=== PATIENT | female | born 1985 | race Caucasian/White ===

== ENCOUNTER 2017-03-10 02:35 | Inpatient (IN) | payer OTHER ==
[~2017-03-10] VITALS: Ht 162.6 cm; Wt 78.5 kg
[~2017-03-10 02:35] MED LIST: AMOX-366 PO
[2017-03-10] MEDS ORDERED: PREN1TAB87 PO (08:14)
[2017-03-10] MEDS ORDERED: ALBU8.5H2 INHALATION (08:17)
[2017-03-10] MEDS ORDERED: Lactated Ringer's 1,000 ML IV PRN (08:34)
[2017-03-10] MEDS ORDERED: Oxytocin 10 Unit/mL Inj IM PRN (08:35)
[2017-03-10] MEDS ORDERED: fentaNYL-PF 50 mCg/mL 2 mL Inj IVPUSH PRN (08:35)
[2017-03-10] MEDS ORDERED: Hemorrhage Kit, Post Partum XX ONE (08:35)
[2017-03-10] MEDS ORDERED: Ondansetron 2 mg/mL 2 mL Inj IVPUSH PRN ×2 (08:35→10:35)
[2017-03-10] MEDS ORDERED: Carboprost 250 mCg/mL Inj IM PRN (08:35)
[2017-03-10] MEDS ORDERED: Oxytocin 30 Units/500 mL LR 30 UNITS in IV Premix 1 EACH IV PRN (08:35)
[2017-03-10] MEDS ORDERED: Methylergonovine 0.2 mg/mL Inj IM PRN (08:35)
[2017-03-10 08:42] LABS: Mean Corpuscular Hemoglobin 28.3 pg (27.0-35.0); Mean Corpuscular Volume 84.8 fL (81-100)
--- NOTE | 2017-03-10 08:45 | PCM.HPOB ---
Subjective Referring Provider: Admitting Physician: Nancy Coon MD Primary Care Physician: Nopcp Attending Physician: Nancy Coon MD History of Present History of Present Illness Emilee is a 31 y/o -0-1-1 at 40 weeks 6 days gestation with an LOU of 2016 who is admitted for induction of labor for postmaturity . She did have a low lying placenta early in , but this was noted to be resolved on ultrasound 12/12/2016. She has a history of asthma, but no complications during . She is GBS negative and has a PCN and Sulfa allergy. Obstetrical Complications: None Past Medical History Obstetrical History: 1. at 41 weeks Gynecologic History: Noncontributory Medical History: Asthma Surgical History: None Hx Tobacco Use: No Hx Alcohol Use: No Hx Substance Use: No Past Family History Living Arrangement: with Family Genetic Screening/Counseling Genetic Screening/Counseling: Negative Allergy Coded Allergies: Penicillins (Unverified Allergy, Unknown, 10/23/16) Sulfa (Sulfonamide Antibiotics) (Unverified Allergy, Unknown, 10/23/16) Exam Vital Signs Reviewed and stable Exam Category I FHT Constitutional: Well-developed, Well-nourished Lungs: Clear to Auscultation Heart: Exam Unremarkable Abdomen: Gravid Neurological/Psychiatric: Alert, Oriented X3, Cooperative, No Acute Distress Neuro: Grossly Neurologically Intact Additional Information 50/-2, soft, posterior and vertex Labs/Diagnostics Labs Laboratory Tests 72 Hours Test 03/10/17 07:25 Maternal Blood Type: A (Positive) Hx Rho(D) Immune Globulin: No Group B Strep Results: Negative Previous with GBS: No Rubella: Immune Lab History: Positive for: Hx Chicken Pox OB Intrapartum Assessment/Plan Problems: (1) Postmaturity , 40-42 weeks gestation Plan: Plan for Pitocin induction. May have epidural when she desires. Status: Acute ICD Code: O48.0 Lary Eaton MD March 10, 2017 08:45
[2017-03-10] MEDS: Lactated Ringer's 1,000 ML IV SCH ×4 (09:06→18:33)
[2017-03-10] MEDS ORDERED: Lactated Ringer's 500 ML IV ONE (10:33)
--- NOTE | 2017-03-10 10:33 | PCM.HPANE ---
Patient Data Date of Service: March 10, 2017 Surgeon Admitting Provider:Nancy Coon MD Attending Provider:Nancy Coon MD Primary Care Physician:Skip Other Provider:Carmina Cuello Anesthesia Reason for Visit Induction INDUCTION Ht/WT & BMI Height (Centimeters): 163 Weight (Kilograms): 78 Body Mass Index Allergies Coded Allergies: Penicillins (Unverified Allergy, Unknown, 10/23/16) Sulfa (Sulfonamide Antibiotics) (Unverified Allergy, Unknown, 10/23/16) Past Anesthesia History Anesthesia History: Denies:: Abnormal Airway, Anesthesia Reactions, Difficult Intubation, Fam Anesthesia Reaction, Fam Malignant Hypertherm, Malignant Hyperthermia Diabetes History Hx Diabetes?: No MRSA MRSA: No Medications Hypertension Medication: No Home Meds Incl Beta Rola: No Reported Medications Albuterol HFA (Proair HFA)8.5 Gm Hfa.aer.ad2 Puffs INHALATION Q4H PRN For Shortness of Breath #1 INHALER 03/10/17 Vit W-Ca,Fe,FA(<1 mg) ( Vitamins)1 Each Tablet1 Each PO DAILY 03/10/17 Discontinued Scripts Amoxicillin/Clav K 875-125 mg (Augmentin 875-125 mg)1 Each Tablet1 Tablet PO BID #6 TABLET Ref 0 Prov:Reagan Diaz MD 10/23/16 History History of ENT Problems?: No HEENT History: Denies:: Abnormal Airway Cataracts Difficult Intubation Dysphagia Glaucoma Hearing Problem Sinus Problem TMJ Denture Type: None Teeth Condition: Within Normal Limits Hx of Heart Problems?: No Cardiovascular History: Denies:: AICD Abdominal Aortic Aneurism Atrial Fibrillation Cardiac Surgery Chest Pain Congestive Heart Failure Coronary Artery Disease Edema Heart Murmur Hypertension Irregular Heartbeat Pacemaker Peripheral Vascular Rheumatic Fever Thrombophlebitis Valvular Heart Disease Hx of Respiratory Problem?: Yes Respiratory History: Positive for:: Asthma Use of Inhalers / NEBS Hx Neurologic Problems?: No Neurological History: Denies:: Alzheimer's Disease CVA Dementia Dizziness Headaches Multiple Sclerosis Parkinson's Disease Peripheral Neuropathy Seizures TIA Hx of GI Problems?: No Gastrointestinal History: Denies:: Cirrhosis Diverticulitis Gall Bladder Disease Gastroesphageal Reflux Gastrointestinal Bleeding Heartburn Hepatitis Hiatal Hernia Liver Disease Rectal Bleeding Hx of Problems?: No Genitourinary History: Denies:: HX of Hemodialysis Kidney Stones Urinary Tract Infection Female Hx: Positive for:: Currently Hx Musculoskeletal Problems?: No Musculoskeletal History: Denies:: Back Injury Degenerative Joint Fibromyalgia Joint Replacement Musculoskeletal Trauma Myasthenia Gravis Osteoarthritis Rheumatoid Arthritis Systemic Lupus Hx Surgeries?: No Hx Alcohol Use: NoHx Substance Use: No Smoking Status: Former Smoker Stop/Bang LEONARDO Risk Assessment: Low Risk, <3 Yes Risk Assessment Category Category 1A: Patient has history of documented sleep apnea, and HAS NOT received any narcotic, sedative or anesthesia administration during this stay. Category 1B: Patient has history of documented sleep apnea, and HAS received any narcotic , sedative or anesthesia administration during this stay Category 2: Patient has SUSPECTED Obstructive Sleep Apnea, and HAS received any narcotic , sedative or anesthesia administration during this stay. Category 3: Patient has SUSPECTED Obstructive Sleep Apnea and HAS NOT received narcotic, sedative or anesthesia administration during this stay. Category 4: Outpatient in Procedural Areas with known sleep apnea or who screen positive for High Risk via the STOP/BANG questionnaire. Exam Exam General Appearance: Alert, Oriented X3, Cooperative, No Acute Distress HEENT/AIRWAY: MP 1 Lungs: Clear to Auscultation Heart: Exam Unremarkable Meds/Labs/Diagnostics Admission Meds Current Medications Lactated Ringer's (Lr) 1,000 ml @ 125 mls/hr Q8H IV Last administered on t 09:06; Start 03/10/17 at 08:34 Labs Test 03/10/17 07:25 White Blood Count 6.1th/mm3 (3.8-10.1) Red Blood Count 4.34mil/mm3 (3.90-5.20) Hemoglobin 12.3g/dL (12.0-15.6) Hematocrit 36.8% (35.0-46.0) Mean Corpuscular Volume 84.8fL (81-100) Mean Corpuscular Hemoglobin 28.3pg (27.0-35.0) Mean Corpuscular Hemoglobin Concent 33.4% (32.0-37.0) Red Cell Distribution Width 13.4% (12.3-15.4) Platelet Count 160bil/L (150-400) Hold Purple Top Tube Received (Received) Plan Impression Patient chart reviewed, patient interviewed and anesthestic plan with risks, benefits, and alternatives discussed, and informed consent obtained. ASA Physical Status: ASA2 Mod Systemic Disease Anesthetic Plan: Epidural Bene/Risks/Altern/Consents: Yes HP Complete Prior to Induction: Yes Arthur Lundberg MD March 10, 2017 10:33
[2017-03-10] MEDS ORDERED: EPHEDrine Sulfate 50 mg/mL Inj IVPUSH PRN (10:35)
[2017-03-10] MEDS ORDERED: fentaNYL 2 mCg/mL-Bupiv 0.125% 100 ML EPIDURAL SCH (10:35)
[2017-03-10] MEDS ORDERED: Atropine 1 mg/10 mL (Code) Syringe IVPUSH PRN (10:35)
--- NOTE | 2017-03-10 12:24 | PCM.PNOBIP ---
Subjective Date of Service March 10, 2017 Delivery plan: Spontaneous Vaginal Delivery Visit History Emilee is a 31 y/o -0-1-1 at 40 weeks 6 days gestation with an LOU of 2016 who is admitted for induction of labor for postmaturity . She did have a low lying placenta early in , but this was noted to be resolved on ultrasound 12/12/2016. She has a history of asthma, but no complications during . She is GBS negative and has a PCN and Sulfa allergy. Subjective Patient has epidural, feels pain on right in lower back (4/10) Pain Management: Epidural Gastrointestinal: No N/V Group B Strep Results: Negative Rubella: Immune Blood Type: A (Positive) RH Type: Positive Labs Laboratory Tests 03/10/17 07:25: White Blood Count 6.1, Red Blood Count 4.34, Hemoglobin 12.3, Hematocrit 36.8, Mean Corpuscular Volume 84.8, Mean Corpuscular Hemoglobin 28.3, Mean Corpuscular Hemoglobin Concent 33.4, Red Cell Distribution Width 13.4, Platelet Count 160, Hold Purple Top Tube Received Exam Vital Signs Vital Signs Contraction frequency in minutes: 2 minutes Vital Signs: VS reviewed, stable Heart Tracings Heart Tones Baseline 120 bpm Heart Rate Variability: Moderate Heart Rate Accelleration: Present Heart Rate Deceleration: Absent Heart Rate Category: I Sterile Vaginal Exam Cervical Dilation: 3 cms Cervical Effacement: 70 % Station: -3 Exam General: Alert, Oriented X3, Cooperative, No Acute Distress OB Intrapartum Assessment/Plan Problems: (1) Postmaturity , 40-42 weeks gestation Plan: Attempted to AROM, but thick membrane and could not rupture at this time. Continue to monitor. FHT overall reassuring, will continue with Pitocin induction. Status: Acute ICD Code: O48.0 Intrapartum plan: Continue expected management Lary Eaton MD March 10, 2017 12:24
[2017-03-10] MEDS ORDERED: Sodium Chloride LOK Flush 10 mL Syringe IVFLUSH SCH (16:30)
--- NOTE | 2017-03-10 18:33 | PCM.OBVAG ---
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 Induction: Induction of labor, AROM, Progressed normally through labor Findings Obstetrical Findings: (Female), Cord (3 Vessel), Presentation (Vertex) , 1 minute (9), 5 minutes (9), Placenta (Intact/Normal), Perineal Laceration (2nd degree) Analgesia/Medications Obstetrical Anesthesia: Epidural Procedure Details Procedure Details Emilee is a 31 y/o -0-1-1 at 40 weeks 6 days gestation with an LOU of 2016 who is admitted for induction of labor for postmaturity . She was started on Pitocin and progressed through labor normally. She received an epidural and her membranes were ruptured at 0546 and she was completely dilated at 0710. She delivered a female her spontaneous vaginal delivery at 07: 39. There were 2 nuchal cords that were tight and the infant delivered without difficulty. After delivery the nuchal cords were reduced and the was placed on the maternal chest for skin to skin bonding. Delayed cord clamping was allow for 1 minute and the cord was doubly clamped and ligated. The placenta was delivered intact with three-vessel cord at 07:48. Inspection of the vagina cervix and perineum there was a small second-degree laceration that was repaired in the standard fashion with 2-0 Vicryl suture. Sponge counts were correct 2 and the procedure. Specimen none IV Intake/Output Catheters: Urethral [address] [place] Blood Loss & Administration Estimated Blood Loss: 200 Blood Admin during procedure: No Post Procedure Plan Post Procedure Plan routine care Post delivery Condition: Mom stable Lary Eaton MD March 10, 2017 18:33
[2017-03-10] MEDS ORDERED: Measles-Mumps-Rubella Vaccine 0.5 mL Inj SUBQ PRN (20:35)
[2017-03-10] MEDS ORDERED: Witch Hazel-Glycerin Pads TOPICAL PRN (20:35)
[2017-03-10] MEDS ORDERED: LANOlin HPA 7 Gm Ointment TOPICAL PRN (20:35)
[2017-03-10] MEDS ORDERED: Benzocaine (Dermoplast) 20% 60 Gm Spray TOPICAL PRN (20:35)
[2017-03-10] MEDS ORDERED: TdaP Vaccine 0.5 mL Inj IM ONE (20:35)
--- NOTE | 2017-03-10 21:34 | PCM.ANEP1 ---
Post Anesthesia PACU Phase 1 Assessment Date of Service: March 10, 2017 Vital Signs VSS see nurses note Anesthetic Administered: Epidural Level of Alertness: Awake, talking REDDY's with Equal Strength: Yes Pain: No Pain Scale Score: 0 Nausea or Vomiting: No CV Function & Hydration Stable: Yes Airway Device: none!!! Oxygen Delivery: Room Air Lungs: Normal Air Movement Dermatome Level: Full Sensation PACU Phase 2 Assessment Complications: No Follow up Care: N/A Patient Instructions Provided: N/A Arthur Lundberg MD March 10, 2017 21:33
[2017-03-11 06:11] LABS: Mean Corpuscular Hemoglobin 28.5 pg (27.0-35.0)
[2017-03-11] MEDS: oxyCODONE-Acetamin 5-325 mg Tablet PO PRN ×3 (06:43→20:20)
--- NOTE | 2017-03-11 19:34 | PCM.DIMED ---
Discharge Instructions Date of Service March 11, 2017 Dates of Hospitalization March 10, 2017 at 6:40 am Diet Discharge Diet: No restrictions Activity Discharge Activity: No restrictions Call your provider Call your provider for: Fever or Chills, Shortness of breath, Bleeding, Chest pain, Vomitting, Excessive diarrhea, Weakness (unilateral) Patient Instructions Follow-up with PCP in: 2 weeks Reagan Diaz MD March 11, 2017 7:34 pm
[2017-03-11 19:39] VITALS: BP 133/77; PULSE 76; RESP 16
[2017-03-11] MEDS ORDERED: IBUP800T28 PO (19:39)
[2017-03-11] MEDS ORDERED: OXYC1TAB24 PO (19:39)
[2017-03-11 19:43] VITALS: BP 133/77; PULSE 76; RESP 16
--- NOTE | 2017-03-11 19:54 | DIS ---
[address] [address] DISCHARGE SUMMARY PATIENT: QUINCY JOHNSON : 1985 MR#: [id number] ADMIT: 03/10/2017 JOB ID: [id number] DIS: 03/11/2017 ADMITTING DIAGNOSIS: A 31-year-old, 3, para 1, at 40 weeks and 6 days for induction of labor for post-term . DISCHARGE DIAGNOSIS: A 31-year-old, 3, para 2, status post spontaneous vaginal delivery at term. HOSPITAL COURSE: The patient was admitted to the hospital on the morning of March 10, 2017 for induction of labor because of post dates . She was examined. The cervix was favorable and she was started on Pitocin, and progressed through labor normally. The patient received an epidural. Had artificial rupture of membranes at 5:46 p.m. and progressed to complete dilation at 7:10 p.m., and underwent spontaneous vaginal delivery at 7:39 a.m. Delivered a female with Apgars 9 at 1 minute and 9 at 5 minutes. She had small laceration secondarily; it was repaired with 3-0 Vicryl. On day one, March 11, 2017, the patient was ambulating, breast-feeding, not having any complaints about abnormal vaginal discharge or vaginal bleeding. On exam, the fundus was firm. The perineum was intact. There was no bleeding. Postoperative labs showed WBC count of 8.1, hemoglobin 11.2, hematocrit 33.4, platelet count 140; slight decrease from preoperative platelet count of 160. The patient was discharged home in stable condition with all discharge criteria met on day one, March 11, 2017. She received discharge medications includin. Motrin 800 mg p.o. t.i.d. p.r.n. 2. Percocet 5/325 mg p.o. t.i.d. p.r.n. 3. Colace 100 mg p.o. b.i.d. FOLLOWUP: Followup visit in the clinic is scheduled in six weeks.
== END 2017-03-11 20:26 | disposition home or self-care (01) | DRG 775 ==
LOC: FBC 06:40
PROVIDERS: ADMIT Obstetrics & Gynecology; ATTEND Obstetrics & Gynecology
PROC: 10E0XZZ Delivery of Products of Conception, External Approach (ICD-10-PCS; principal; 2017-03-10)
PROC: 0KQM0ZZ Repair Perineum Muscle, Open Approach (ICD-10-PCS; 2017-03-10)
PROC: 10907ZC Drainage of Amniotic Fluid, Therapeutic from Products of Conception, Via Natural or Artificial Opening (ICD-10-PCS; 2017-03-10)
PROC: 3E033VJ Introduction of Other Hormone into Peripheral Vein, Percutaneous Approach (ICD-10-PCS; 2017-03-10)
DX: O48.0 Post-term pregnancy (principal); O69.1XX0 Labor and delivery complicated by cord around neck, with compression, not applicable or unspecified; O70.1 Second degree perineal laceration during delivery; Z3A.40 40 weeks gestation of pregnancy; Z37.0 Single live birth